=== PATIENT | female | born 1945 | race Caucasian/White ===

== ENCOUNTER 2024-07-07 20:36 | Inpatient (IN) | payer MEDICARE, MEDICAID ==
[~2024-07-07] VITALS: Ht 162.6 cm; Wt 102.0 kg
[~2024-07-07 20:36] MED LIST: ATOR80TA PO; CLON-529 PO; GLIM1TAB57 PO; HYDR12.522 PO; LANTUS SQ; LIRA0.6P SQ; METF500T PO; METO-539 PO; OMEP-84 PO
[2024-07-07 21:46] LABS: BASOPHILS % (AUTO) 0.6 % (0-1); EOSINOPHILS # (AUTO) 0.5 X10'3 (0-0.9); HEMATOCRIT 41.1 % (35.0-45.0); HEMOGLOBIN 13.8 g/dl (12.0-16.0); LYMPHOCYTES # (AUTO) 1.8 X10'3 (1.1-4.8); LYMPHOCYTES % (AUTO) 26.5 % (21-51); MEAN CORPUSCULAR HEMOGLOBIN 29.7 PG (27.0-31.0); MEAN CORPUSCULAR HGB CONC 33.5 g/dL (33.0-36.5); MEAN CORPUSCULAR VOLUME 88.5 FL (78-98); MEAN PLATELET VOLUME 8.7 FL (7.4-10.4); MONOCYTES # (AUTO) 0.5 X10'3 (0-0.9); MONOCYTES % (AUTO) 6.9 % (2-12); NEUTROPHILS # (AUTO) 4.1 X10'3 (1.8-7.7); PLATELET COUNT 164 X10'3 (140-440); RED BLOOD COUNT 4.64 X10'6 (4.20-5.60); RED CELL DISTRIBUTION WIDTH 16.5 % (11.5-14.5); WHITE BLOOD COUNT 6.9 X10'3 (4.5-11.0)
[2024-07-07 21:50] LABS: ALBUMIN 3.3 G/DL (3.4-5.0); ANION GAP 9 (8-16); BLOOD UREA NITROGEN 25 MG/DL (7-18); CALCIUM 8.5 MG/DL (8.5-10.1); CHLORIDE 107 MMOL/L (99-107); CREATININE 1.56 MG/DL (0.40-0.90); GLUCOSE 151 MG/DL (70-104); SODIUM 141 MMOL/L (135-145); eCRCL 25 ML/MIN; eGFR 32 ML/MIN
[2024-07-07] MEDS: vancomycin/NS 1 GM ADD-VANTAGE 250 ML IV SCH (22:17)
[2024-07-07] MEDS ORDERED: ondansetron/PF 4mg/2ml inj IV PRN (23:15)
[2024-07-07] MEDS ORDERED: potassium Cl 40MEQ/1/2NS 520ml 520 ML IV PRN (23:15)
[2024-07-07] MEDS ORDERED: magnesium hydroxide 30ml (MOM) UD suspension PO PRN (23:15)
[2024-07-07] MEDS ORDERED: mag hydrox/Alum hydrox/simeth 30ml oral suspension PO PRN (23:15)
[2024-07-07] MEDS ORDERED: acetaminophen 325mg tablet PO PRN (23:15)
[2024-07-07] MEDS ORDERED: magnesium Cl slow-release 64mg tablet PO PRN (23:15)
[2024-07-07] MEDS ORDERED: magnesium sulf-water 4G/100mL 100 ML IV PRN (23:15)
[2024-07-07] MEDS ORDERED: magnesium sulf-water 2g/50mL 50 ML IV PRN (23:15)
[2024-07-07] MEDS ORDERED: potassium Cl 20 mEq SR tablet PO PRN ×2 (23:15)
[2024-07-07] MEDS ORDERED: morphine 2 MG/ML inj. syringe IV PRN ×2 (23:15)
[2024-07-07 23:45] LABS: C-REACTIVE PROTEIN 0.13 MG/DL (0.0-0.5); MAGNESIUM 2.2 MG/DL (1.5-2.4); PHOSPHORUS 4.2 MG/DL (2.3-4.5)
[2024-07-07 23:47] LABS: HEMOGLOBIN A1C 10.4 % (4.5-6.2)
[2024-07-07] MEDS: HYDROchlorothiazide 12.5mg capsule PO SCH (23:56)
[2024-07-07] MEDS: amLODIPine 5mg tablet PO ONE (23:57)
[2024-07-07] MEDS: metoprolol succinate 25mg (24-HOUR) SR. Tablet PO SCH (23:58)
[2024-07-07] MEDS: heparin, porcine 5000 units/ml vial SQ SCH (23:59)
[2024-07-08] MEDS ORDERED: CARB1TAB42 PO (00:11)
[2024-07-08] MEDS ORDERED: CARB1TAB36 PO (00:11)
[2024-07-08] MEDS ORDERED: dextrose 50%-water 50ml dispensing syringe IV PRN ×2 (00:20)
[2024-07-08] MEDS ORDERED: glucagon, human recombinant 1mg kit SUBCUT PRN (00:20)
[2024-07-08] MEDS ORDERED: DEXTROSE 15 GM of carb/4 tabs (each vial/BOTTLE has 4 tablets) PO PRN ×2 (00:20)
[2024-07-08] MEDS ORDERED: ipratropium/albuterol 3ml nebule NEB PRN (00:25)
[2024-07-08] MEDS ORDERED: LISI20TA28 PO (00:38)
[2024-07-08] MEDS ORDERED: GABA-535 PO (00:54)
[2024-07-08] MEDS ORDERED: ESCI20TA39 PO (00:57)
[2024-07-08] MEDS ORDERED: RIVA1.5C30 PO (01:00)
[2024-07-08] MEDS ORDERED: DAPA10TA PO (01:02)
[2024-07-08 01:40] VITALS: PULSE 67; RESP 18; O2SAT 97
[2024-07-08 02:30] VITALS: BP 156/78; PULSE 67; RESP 16; TEMP 98.2; O2SAT 93; O2SAT 96
[2024-07-08] MEDS: normal saline 1000ml 1,000 ML IV SCH (03:22)
[2024-07-08] MEDS: ampicill/sulbac 1.5gm/NS 100ml 100 ML IV SCH (03:22)
[2024-07-08 06:52] LABS: BASOPHILS % (AUTO) 0.5 % (0-1); EOSINOPHILS # (AUTO) 0.4 X10'3 (0-0.9); EOSINOPHILS % (AUTO) 5.5 % (0-6); HEMATOCRIT 42.2 % (35.0-45.0); LYMPHOCYTES # (AUTO) 1.4 X10'3 (1.1-4.8); LYMPHOCYTES % (AUTO) 20.6 % (21-51); MEAN CORPUSCULAR HEMOGLOBIN 29.2 PG (27.0-31.0); MEAN CORPUSCULAR HGB CONC 33.1 g/dL (33.0-36.5); MEAN CORPUSCULAR VOLUME 88.2 FL (78-98); MEAN PLATELET VOLUME 8.4 FL (7.4-10.4); MONOCYTES # (AUTO) 0.5 X10'3 (0-0.9); MONOCYTES % (AUTO) 6.5 % (2-12); NEUTROPHILS # (AUTO) 4.7 X10'3 (1.8-7.7); NEUTROPHILS % (AUTO) 66.9 % (42-75); PLATELET COUNT 164 X10'3 (140-440); RED BLOOD COUNT 4.79 X10'6 (4.20-5.60); RED CELL DISTRIBUTION WIDTH 16.8 % (11.5-14.5)
[2024-07-08 07:22] LABS: ALBUMIN 3.1 G/DL (3.4-5.0); ANION GAP 9 (8-16); BLOOD UREA NITROGEN 21 MG/DL (7-18); BUN/CREATININE RATIO 14.4 (10.0-20.0); CALCIUM 8.6 MG/DL (8.5-10.1); CHLORIDE 107 MMOL/L (99-107); CHOL/HDL RATIO 3.2 (0.00-4.99); CHOLESTEROL 130 MG/DL (0-200); CREATININE 1.46 MG/DL (0.40-0.90); GLUCOSE 136 MG/DL (70-104); HDL CHOLESTEROL 41 MG/DL (35-60); LDL CHOLESTEROL 61 MG/DL (50-100); SODIUM 143 MMOL/L (135-145); TOTAL CARBON DIOXIDE 27.3 MMOL/L (24-32); TRIGLYCERIDES 125 MG/DL (20-135); eCRCL 27 ML/MIN; eGFR 35 ML/MIN
[2024-07-08] MEDS: pantoprazole 40mg Tablet.DR PO SCH (07:30)
[2024-07-08 08:00] VITALS: RESP 16; O2SAT 96
[2024-07-08] MEDS: K and/or MAG REPLACEMENT MC SCH (08:00)
[2024-07-08] MEDS ORDERED: metoprolol succinate 25mg (24-HOUR) SR. Tablet PO SCH (08:00)
[2024-07-08] MEDS ORDERED: HYDROchlorothiazide 12.5mg capsule PO SCH (08:00)
[2024-07-08 08:27] VITALS: PULSE 67; RESP 20; O2SAT 95
[2024-07-08] MEDS: cloNIDine 0.1 mg tablet PO SCH (08:42)
[2024-07-08] MEDS: carbidoba-levodopa 25-100mg tablet PO SCH (08:42)
[2024-07-08] MEDS: INSULIN LISPRO 100 UNIT/ML INSULN.PEN MULTI-DOSE SQ SCH (08:52)
[2024-07-08 10:00] VITALS: BP 148/93; PULSE 66; RESP 15; TEMP 97.5; O2SAT 96
[2024-07-08] MEDS ORDERED: AMOX-580 PO (12:51)
[2024-07-08] MEDS ORDERED: ampicill/sulbac 1.5gm/NS 100ml 100 ML IV SCH (15:17)
[2024-07-08] MEDS ORDERED: nystatin 15 GM powder TP SCH (20:00)
[2024-07-08] MEDS ORDERED: carbidopa/levodopa 50/200mg CR tablet PO SCH (21:00)
[2024-07-08] MEDS ORDERED: atorvastatin 20mg tablet PO SCH (21:00)
[2024-07-08] MEDS ORDERED: insulin glargine (Lantus) pen - multi-dose SQ SCH (21:00)
[2024-07-08] MEDS ORDERED: HYDR-3965 PO (21:07)
== END 2024-07-08 15:45 | disposition home or self-care (01) | DRG 602 ==
LOC: ER 20:36 → ED HOLD 23:17 → ORTHO 4S 07-08 01:25
PROVIDERS: ADMIT Internal Medicine Critical Care Medicine; ATTEND Internal Medicine
DX: L03.032 Cellulitis of left toe (principal); N17.0 Acute kidney failure with tubular necrosis; E11.628 Type 2 diabetes mellitus with other skin complications; E11.40 Type 2 diabetes mellitus with diabetic neuropathy, unspecified; G20.A1 Parkinson's disease without dyskinesia, without mention of fluctuations; I25.10 Atherosclerotic heart disease of native coronary artery without angina pectoris; G47.30 Sleep apnea, unspecified; F32.A Depression, unspecified; J44.9 Chronic obstructive pulmonary disease, unspecified; E11.22 Type 2 diabetes mellitus with diabetic chronic kidney disease; Z96.652 Presence of left artificial knee joint; Z96.611 Presence of right artificial shoulder joint; I12.9 Hypertensive chronic kidney disease with stage 1 through stage 4 chronic kidney disease, or unspecified chronic kidney disease; Z66 Do not resuscitate; I48.91 Unspecified atrial fibrillation; N18.9 Chronic kidney disease, unspecified; I25.2 Old myocardial infarction; Z89.422 Acquired absence of other left toe(s); Z79.899 Other long term (current) drug therapy; Z90.49 Acquired absence of other specified parts of digestive tract
CPT/HCPCS: 36415; 73630; 80048; 80061; 82948; 83036; 83735; 84100; 85025; 85651; 86140; 87081; 93922; 93926; 94760; 97116; 97161; 97530; 99285; G0378; J0295; J1644; J1815; J3370; J7030